=== PATIENT | male | born 1990 | race Caucasian/White ===

== ENCOUNTER 2020-01-14 16:58 | Emergency (ER) | payer OTHER ==
[~2020-01-14] VITALS: Ht 165.1 cm; Wt 77.1 kg
--- NOTE | 2020-01-14 17:18 | NUR ---
Patient awake alert noted skin rashes all over patient able to speak full sentences no ndistress Pa @ bedside .
[2020-01-14] MEDS ORDERED: FAMOTIDINE/PF INJ 20 MG/2 ML VIAL IV ONE (17:28)
[2020-01-14] MEDS ORDERED: methylPREDNISolone SOD SUCC 125 MG/2ML VIAL ONE (17:28)
[2020-01-14] MEDS ORDERED: diphenhydrAMINE HCL 50 MG/ML VIAL ONE (17:28)
[2020-01-14] MEDS: IV NS 0.9% 1,000 ML BAG IV ONE (17:37)
[2020-01-14] MEDS: methylPREDNISolone SOD SUCC 125 MG/2ML VIAL IV ONE (17:38)
[2020-01-14] MEDS: FAMOTIDINE/PF INJ 20 MG/2 ML VIAL IV ONE (17:38)
[2020-01-14] MEDS: diphenhydrAMINE HCL 50 MG/ML VIAL IV ONE (17:38)
--- NOTE | 2020-01-14 19:36 | NUR ---
IV removed. Catheter intact and site benign. Pressure and 4x4 applied to site. No bleeding noted.
--- NOTE | 2020-01-14 19:36 | NUR ---
Patient discharged to home in stable condition. Written and verbal after care instructions given. Patient verbalizes understanding of instruction.
[2020-01-14 19:37] VITALS: BP 132/79
== END 2020-01-14 19:37 | disposition home or self-care (01) ==
LOC: ER 17:02
DX: L50.9 Urticaria, unspecified (principal); T43.4X5A Adverse effect of butyrophenone and thiothixene neuroleptics, initial encounter; F32.9 Major depressive disorder, single episode, unspecified; F15.10 Other stimulant abuse, uncomplicated; Z88.8 Allergy status to other drugs, medicaments and biological substances; Y92.89 Other specified places as the place of occurrence of the external cause
CPT/HCPCS: 96374; 96375; 99284; J1200; J2930; J3490; J7030

== ENCOUNTER 2020-01-18 09:01 | Emergency (ER) | payer OTHER ==
[~2020-01-18] VITALS: Ht 165.1 cm; Wt 77.1 kg
--- NOTE | 2020-01-18 09:15 | NUR ---
WOKE UP W/ FACIAL SWELLING TODAY. GENERALIZED HIVES FOR DAYS. DENIES SOB. PATIENT A/OX4, BREATHING EVEN AND UNLABORED, NO SOB NOTED. NEEDS ATTENDED, KEPT COMFORTABLE.
[2020-01-18] MEDS ORDERED: methylPREDNISolone SOD SUCC 125 MG/2ML VIAL ONE (09:36)
[2020-01-18] MEDS ORDERED: EPINEPHRINE (1:1000) 1 MG/ML AMPUL ONE (09:36)
[2020-01-18] MEDS ORDERED: diphenhydrAMINE HCL 50 MG CAPSULE ONE (09:37)
[2020-01-18] MEDS: methylPREDNISolone SOD SUCC 125 MG/2ML VIAL IV ONE (09:43)
[2020-01-18] MEDS: diphenhydrAMINE HCL 50 MG CAPSULE PO ONE (09:43)
[2020-01-18] MEDS: EPINEPHRINE (1:1000) MDV 30 MG/30ML VIAL SUBCUT ONE (09:44)
[2020-01-18] MEDS ORDERED: FAMOTIDINE/PF INJ 20 MG/2 ML VIAL IV ONE (10:00)
[2020-01-18] MEDS: FAMOTIDINE/PF INJ 20 MG/2 ML VIAL IV ONE (10:05)
[2020-01-18] MEDS: IV NS 0.9% 1,000 ML BAG IV ONE (10:05)
[2020-01-18 10:57] VITALS: BP 127/74
== END 2020-01-18 10:57 | disposition home or self-care (01) ==
LOC: ER 09:07
DX: L50.8 Other urticaria (principal); F32.9 Major depressive disorder, single episode, unspecified; Z88.8 Allergy status to other drugs, medicaments and biological substances
CPT/HCPCS: 36415; 96361; 96372; 96374; 96375; 99284; J0171 ×2; J2930; J3490; J7030; Q0163

== ENCOUNTER 2020-06-27 22:01 | Emergency (ER) | payer OTHER ==
[~2020-06-27] VITALS: Ht 165.1 cm; Wt 83.9 kg
--- NOTE | 2020-06-27 22:58 | NUR ---
URINE SAMPLE COLLECTED AND SENT TO LAB.
--- NOTE | 2020-06-27 23:08 | NUR ---
BLOOD DRAWN BY BLOW PIT OPERATOR.
[2020-06-27 23:13] LABS: BASOPHILS # (AUTO) 0.1 /CMM (0.0-0.2); BASOPHILS % (AUTO) 0.9 % (0.0-2.0); HEMATOCRIT 48 % (39-51); HEMOGLOBIN 16.1 g/dL (13.5-17.5); LYMPHOCYTES # (AUTO) 2.4 /CMM (0.8-4.8); LYMPHOCYTES % (AUTO) 19.2 % (20.0-44.0); MEAN CORPUSCULAR HGB CONC 34 g/dl (31.0-36.0); MEAN CORPUSCULAR VOLUME 87 fL (80-96); MONOCYTES # (AUTO) 0.9 /CMM (0.1-1.30); MONOCYTES % (AUTO) 7.3 % (2.0-12.0); NEUTROPHILS % (AUTO) 70.6 % (43.0-81.0); PLATELET COUNT (AUTO) 252 /CMM (150-450); RED BLOOD CELL COUNT(AUTO) 5.45 MIL/uL (4.5-6.0); WHITE BLOOD COUNT (AUTO) 12.7 K/uL (4.3-11.0)
[2020-06-27 23:15] LABS: BILIRUBIN,URINE Negative (NEGATIVE); COLOR,URINE YELLOW (YELLOW); LEUKOCYTE ESTERASE ,URINE Negative (NEGATIVE); NITRITE, URINE Negative (NEGATIVE); PROTEIN,URINE Negative (NEGATIVE); UGLUCOSE Negative (NEGATIVE); UROBILINOGEN,URINE 0.2 EU/dL (0.2)
[2020-06-27 23:19] LABS: CALCIUM, SERUM 8.3 mg/dL (8.5-10.1); CARBON DIOXIDE 31 mmol/L (21-32); CHLORIDE 104 mmol/L (98-107); CREATININE 0.9 mg/dL (0.6-1.3); GLUCOSE 110 mg/dL (74-106); SODIUM SERUM 141 mmol/L (136-145); UREA NITROGEN, BLOOD 17 mg/dL (7-18)
[2020-06-27 23:25] LABS: ALANINE AMINOTRANSFERASE 17 U/L (12-78); ALBUMIN 4.3 g/dL (3.4-5.0); ALCOHOL, BLOOD < 3 mg/dL (0-0); ALKALINE PHOSPHATASE 67 U/L (46-116); ASPARTATE AMINOTRANSFERASE 13 U/L (15-37); BILIRUBIN,DIRECT 0.2 mg/dL (0.0-0.2); BILIRUBIN,TOTAL 0.6 mg/dL (0.2-1.0); TOTAL PROTEIN, SERUM 7.5 g/dL (6.4-8.2)
[2020-06-27 23:28] LABS: ACETAMINOPHEN < 2 ug/ml (10-30)
--- NOTE | 2020-06-27 23:32 | NUR ---
covid swab sent to lab
--- NOTE | 2020-06-28 00:01 | NUR ---
LAB CALLED REGARDING NEGATIVE COVID RESULT.
--- NOTE | 2020-06-28 01:20 | NUR ---
CLINICAL AND FACESHEET FAXED TO [facility] FOR VOLUNTARY PSYCH ADMISSION.
--- NOTE | 2020-06-28 06:08 | NUR ---
TRANSFER INFORMATION: PT ACCEPTED TO [facility] ACCEPTING MD: DR. DHILLON NUMBER FOR REPORT: [phone] PER ART FROM [facility] INTAKE, GIVE REPORT AND SET UP TRANSPORTATION AFTER 0800
--- NOTE | 2020-06-28 08:22 | NUR ---
GAVE REPORT TO NURSE SUMAYA (EXT )
--- NOTE | 2020-06-28 08:43 | NUR ---
CALLED [facility] FOR TRANSPORT TO [place]. ETA 45-60 MINUTES.
[2020-06-28 10:05] VITALS: BP 132/75
--- NOTE | 2020-06-28 10:05 | NUR ---
TRANSPORTED TO [facility] IN STABLE CONDITION.
== END 2020-06-28 10:05 ==
LOC: ER 22:04
DX: R45.851 Suicidal ideations (principal); F19.10 Other psychoactive substance abuse, uncomplicated; Z20.822 Contact with and (suspected) exposure to COVID-19; Z88.8 Allergy status to other drugs, medicaments and biological substances; F31.9 Bipolar disorder, unspecified; F15.10 Other stimulant abuse, uncomplicated
CPT/HCPCS: 36415; 80048; 80076; 80299; 80307; 80320; 81003; 85025; 87426; 99285; C9803; G0480